=== PATIENT | female | born 1990 | race Caucasian/White ===

== ENCOUNTER → 2024-05-05 16:10 | Outpatient (REF) | payer BC, SELFPAY | LOC: RAD 16:10 | PROVIDERS: ATTENDING PHYSICIAN Obstetrics & Gynecology Gynecology; FAMILY PHYSICIAN Family Medicine | DX: N93.9 Abnormal uterine and vaginal bleeding, unspecified (principal) | CPT/HCPCS: 76830; 76856 ==

== ENCOUNTER 2024-07-01 11:58 | Emergency (ER) | payer BC, SELFPAY ==
[2024-07-01 12:09] VITALS: BP 135/91
[2024-07-01 12:43] LABS: % Basophils 0.3 % (0-2); % Eosinophils 0.6 % (0-6); % Immature Granulocytes 0.3 % (0-0.5); % Lymphocytes 7.3 % (20.5-51.1); % Monocytes 7.4 % (1.7-9.3); % Neutrophils 84.1 % (42.2-75.2); Absolute Eosinophils 0.1 10^3/uL (0-0.7); Absolute Lymphocytes 0.8 10^3/uL (1.2-3.4); Absolute Monocytes 0.8 10^3/uL (0.1-0.6); Absolute Neutrophils 9.2 10^3/uL (1.4-6.5); Hematocrit 41.8 % (37.0-47.0); Hemoglobin 14.6 g/dL (12.0-16.0); Mean Corp Hgb Conc. 34.9 g/dL (33.0-37.0); Mean Corpuscular Hgb 29.4 pg (27.0-31.0); Mean Corpuscular Volume 84.3 fL (81.0-99.0); Mean Platelet Volume 8.9 fL (7.4-10.4); Nucleated Red Blood Cells % 0 %; Platelet Count 258 10^3/uL (130-400); Red Blood Cell Count 4.96 10^6/uL (4.20-5.40); White Blood Cell Count 10.9 10^3/uL (4.8-10.8)
--- NOTE | 2024-07-01 12:51 | ED.GENMED ---
Addendum entered and electronically signed by Felicity Sepulveda PA-C 07/04/24 06:30:
urine culture rubio sensitive e coli, no treatment change, on cefdinir
Original Note:
History of Present Illness
General
Chief Complaint: Flank Pain
Source: patient
Exam Limitations: none
Time Seen by Provider: 07/01/24 12:37
History of Present Illness
History of Present Illness:
33yoF with no significant past medical history presenting for evaluation of flank pain. She reports ongoing left flank pain for the past week. She woke up this morning with a fever and had a temperature of 102 while at work today. She reports
nausea but denies any vomiting. She is not having any UTI symptoms. Patient had a D&C 2 weeks ago for a uterine polyp. She is not experiencing any pelvic pain, vaginal bleeding, vaginal discharge. No cough or shortness of breath.
Phy Exam
General Physical Exam
General Presentation: well appearing and no apparent distress
General Skin: warm and dry
General Habitus: normal
General Mental: alert
ENT Exam
ENT Exam: normocephalic
Cardiovascular Exam
Cardiovascular Exam: regular rate/rhythm
Pulmonary Exam
Pulmonary Exam: lungs clear, no respiratory distress, no rales, no crackles, no rhonchi and no wheezing
Gastrointestinal Exam
Gastrointestinal Exam: non tender, soft, non distended and other (+L CVA tenderness)
Neurological Exam
Neurological Exam: alert
Gill Coma Scale
Eye Opening: Spontaneous
Verbal Response: Oriented
Motor Response: Obeys Commands
GCS Total Score: 15
Skin Exam
Skin Exam: normal color and warm/dry
Psychiatric Exam
Psychiatric Exam: normal mood/affect
Sepsis
Sepsis Screening
Sepsis Assessment: Sepsis Ruled Out
Sepsis Screen
Sepsis Screen: Sepsis Ruled Out
Date: 07/01/24
Time: 18:10
Course
Orders/Labs/Results
Orders:
Orders
07/01/24 12:26
Complete Blood Count/With Diff Urgent
Comprehensive Metabolic Panel Urgent
HCG, Serum Qualitative Screen Urgent
Comment: ADD ON
Lactic Acid Q4H
Comment: ON ICE, CANCEL 2ND ORDER IF FIRST LACTIC ACID LEVEL <2
Urinalysis Reflex To Culture Urgent
Date Specimen was Collected: 07/01/24
Time Specimen was Collected: 12:13
Urine Microscopic Reflex Cult Urgent
Blood Culture Q20M
SAQIB Source: Blood/Venous
Specimen Description:
Comment: Urgent from separate sites. If patient screens positive for possible sepsis
Urine Culture Urgent
SAQIB Source: U
Specimen Description:
Date Specimen was Collected: 07/01/24
Time Specimen was Collected: 12:13
07/01/24 12:35
Blood Culture Q20M
SAQIB Source: Blood/Venous
Specimen Description:
Comment: Urgent from separate sites. If patient screens positive for possible sepsis
07/01/24 12:50
0.9% Sodium Chloride 1000 ml [Nss] 1,000 ml IV BOLUS
Ketorolac [Toradol] 15 mg IV NOW STA
07/01/24 12:51
Add On- LAB Urgent
Tests Added?: HCG
CT Abd/pelvis W Iv Cont Urgent
Comment:
Reason For Exam: L flank pain, fever
07/01/24 15:11
Acetaminophen [Tylenol] 1,000 mg .ROUTE .STK-MED ONE
07/01/24 15:13
Acetaminophen [Tylenol] 1,000 mg PO NOW STA
07/01/24 16:05
COVID-19 Antigen Urgent
Source: Nasal Swab
Influenza A+B Rapid Molecular Urgent
SAQIB Source: Nasal Swab
Specimen Description:
Abnormal Lab Results
07/01/24
12:26
WBC 10.9 H 10^3/uL
(4.8-10.8)
Absolute Neuts (auto) 9.2 H 10^3/uL
(1.4-6.5)
Absolute Lymphs (auto) 0.8 L 10^3/uL
(1.2-3.4)
Absolute Monos (auto) 0.8 H 10^3/uL
(0.1-0.6)
Neutrophils % 84.1 H %
(42.2-75.2)
Lymphocytes % 7.3 L %
(20.5-51.1)
Chloride 108 H mmol/L
(98-107)
Leukocyte Esterase Rfl 1+ A
(Negative)
07/01/24 12:26
07/01/24 12:26
Vital Signs
Initial and Last Documented VS:
Initial Vital Signs
Temp Pulse Resp BP Pulse Ox
100.5 F H 88 18 135/91 98
07/01/24 12:09 07/01/24 12:09 07/01/24 12:09 07/01/24 12:09 07/01/24 12:09
Last Documented Vital Signs
Temp Pulse Resp BP Pulse Ox
99.7 F 72 18 128/78 98
07/01/24 14:59 07/01/24 16:36 07/01/24 12:09 07/01/24 16:36 07/01/24 16:36
MDM/Problems Addressed
Differential Diagnosis Includes:
33yoF here with L flank pain x 1 week. Developed fever this morning. No urinary or vaginal symptoms. Temp 100.5 on arrival with otherwise normal vitals. She is well appearing in no distress. Mild L CVA tenderness noted. Differential diagnosis
includes but is not limited to: pyelonephritis, UTI, kidney stone, viral illness
Initial ED plan: Workup initiated in triage. CBC, CMP, lactate, blood cultures, UA sent. Will also obtain CT abdomen with contrast. IV Toradol and fluid bolus for symptoms.
*Critical Care Note
Total Time (30-74mins, 75-104mins- exclusive of procedures): Not Applicable
Update Note
Update Note:
Mild leukocytosis noted with WBC of 10.9. Lactate within normal limits. Remainder of labs unremarkable. UA with 1+ leukocytes. No overt signs of infection on microscopic analysis. CT is negative for acute findings. COVID/flu testing ordered which
are negative. No clear UTI but with flank pain and fever, will cover with antibiotics. She was started on a course of cefdinir. She has an appt with her OBGYN in 3 days. ED return precautions reviewed. Patient in agreement with plan and was
discharged in stable condition.
ED Attending Note
-
Portions of this chart may have been created with voice recognition software.� Occasional wrong word or��sound alike� substitutions may have occurred due to the inherent limitations of voice recognition software.
Discharge Plan
Departure
Patient Disposition: Home (Routine Discharge)
Date of Disposition: 07/01/24
Time of Disposition: 16:04
Patient with high blood pressure during this ER visit?: No
Discharge Problem:
Left flank pain, Fever
Instructions: Flank Pain (DC)
Prescriptions:
New
cefdinir 300 mg capsule
300 mg PO BID Qty: 14 0RF
No Action
MULTIPLE VITAMIN w/FE Tab
1 tab PO DAILY
Referrals:
[facility] [Provider Group]
Activity Restrictions/Additional Instructions:
Take antibiotics as prescribed. Drink plenty of fluids and hydrate.
Please follow-up with your family doctor in 2-3 days. Return to the ER with any new or worsening symptoms including vomiting, severe pain, or if you do not get any better in 3-4 days.
Interventions
Interventions:
*Risk Screen - Suicide Last Done: 07/01/24 13:32
*General Assessment Last Done: 07/01/24 13:33
*Neglect/Abuse Screening Last Done: 07/01/24 13:32
*ED- Fall Risk Assessment Last Done: 07/01/24 13:33
*Nursing Disposition Last Done: 07/01/24 16:36
CM-Zfwxtn-Glmbvhkmqn Assessment Last Done: 07/01/24 13:32
ED-Female Genitourinary Assessment Last Done: 07/01/24 13:32
Discharge Date and Time
Discharge Date/Time: 07/01/24 16:37
Print Language: [place] CIT[place]
[2024-07-01 12:57] LABS: ALT (SGPT) 20 U/L (0-35); AST (SGOT) 21 U/L (14-36); Albumin 4.5 g/dl (3.5-5.0); Alkaline Phosphatase 69 U/L (38-126); Blood Urea Nitrogen 7 mg/dl (7-17); Calcium 9.6 mg/dl (8.4-10.2); Carbon Dioxide 22 mmol/L (22-30); Chloride 108 mmol/L (98-107); Glucose 96 mg/dl (70-99); Potassium 4.1 mmol/L (3.5-5.1); Sodium 137 mmol/L (135-145); Total Protein 7.4 g/dl (6.3-8.2); eGFR > 60.00
[2024-07-01] MEDS: NSS 1000 IV (13:07)
[2024-07-01] MEDS: TORADOL 15 MG IV (13:07)
[2024-07-01 13:27] LABS: Urine Albumin Negative (Neg - Trace); Urine Bilirubin Negative (Negative); Urine Character Clear (Clear); Urine Glucose Negative (Negative); Urine Ketone Negative (Negative); Urine Leukocyte 1+ (Negative); Urine Nitrite Negative (Negative); Urine Occult Blood Negative (Negative); Urine Specific Gravity 1.005 (<1.030); Urine Urobilinogen Negative (Neg - 1+)
[2024-07-01 13:28] LABS: Urine Color Straw
[2024-07-01 13:31] LABS: HCG, Serum Qualitative Screen Negative
[2024-07-01 14:17] LABS: Urine Amorphous Seen; Urine Squamous Cell 21-25 /LPF (Few); Urine Urothelial Cell 0-2 /LPF (FEW)
[2024-07-01 14:18] LABS: Urine Red Blood Cell 0-2 /HPF (0-2)
[2024-07-01] MEDS: TYLENOL 1000 MG PO (15:13)
[2024-07-01 16:36] VITALS: BP 128/78
[2024-07-01 16:55] LABS: COVID-19 Antigen Negative (Negative)
== END 2024-07-01 16:37 | disposition home or self-care (01) ==
LOC: EMR 11:58
PROVIDERS: Physician Assistant; EMERGENCY PHYSICIAN Emergency Medicine; FAMILY PHYSICIAN Family Medicine
DX: R10.9 Unspecified abdominal pain (principal)
CPT/HCPCS: 99284; 96374; 96361; 74177; 80053; 81003; 81015; 83605; 84703; 85025; 87040; 87077; 87086; 87186; 87502; 87811; Q9967